=== PATIENT | male | born 1995 | race African-American/Black ===

== ENCOUNTER 2017-11-19 16:53 | Emergency (ER) | payer MEDICAID ==
[~2017-11-19] VITALS: Ht 182.9 cm; Wt 82.0 kg
[2017-11-19] MEDS ORDERED: CLON0.5T4 PO (16:58)
[2017-11-19] MEDS ORDERED: ESCI5TAB PO (16:58)
[2017-11-19] MEDS ORDERED: LAM25 PO (16:58)
[2017-11-20 01:55] LABS: CLARITY URINE CLEAR (CLEAR); COLOR URINE YELLOW (YELLOW); KETONES URINE TRACE (NEGATIVE); LEUKOCYTE ESTERASE URINE NEGATIVE (NEGATIVE); NITRITE URINE NEGATIVE (NEGATIVE); OCCULT BLOOD URINE NEGATIVE (NEGATIVE); PH URINE 7.5 (4.5-8.0); PROTEIN URINE NEGATIVE (NEGATIVE); SPECIFIC GRAVITY URINE 1.012 (1.005-1.030); UROBILINOGEN URINE 0.2 E.U./dL (0.2-1.0)
[2017-11-20 01:56] LABS: BASOPHILS % 0.3 % (0.0-2.0); EOSINOPHILS % 0.7 % (0.0-5.0); HEMOGLOBIN. 14.5 g/dL (14.0-18.0); MEAN CORPUSCULAR HEMOGLOBIN 26.8 pg (28.0-32.0); MEAN CORPUSCULAR VOLUME 81.6 fL (80.0-94.0); MEAN PLATELET VOLUME 7.5 fl (7.4-10.4); MONOCYTES % 9.5 % (2.0-8.0); NEUTROPHILS % 75.5 % (40.0-76.0); PLATELET 262 x1000/uL (130-400); RED BLOOD CELL COUNT 5.39 mill/uL (4.7-6.1); RED CELL DISTRIBUTION WIDTH 14.8 % (11.6-14.6)
[2017-11-20 02:01] LABS: CHLORIDE 107 mEq/L (98-107)
[2017-11-20 02:13] LABS: *AMPHETAMINES SCREEN URINE NEGATIVE (NEGATIVE); *BARBITURATES SCREEN URINE NEGATIVE (NEGATIVE); *BENZODIAZEPINES SCREEN URINE NEGATIVE (NEGATIVE); *COCAINE SCREEN URINE NEGATIVE (NEGATIVE); CANNABINOID URINE SCREEN NEGATIVE (NEGATIVE); METHADONE URINE SCREEN NEGATIVE (NEGATIVE); OPIATES URINE SCREEN NEGATIVE (NEGATIVE); PHENCYCLIDINE URINE SCREEN NEGATIVE (NEGATIVE)
[2017-11-20 02:14] LABS: CARBON DIOXIDE 29 mEq/L (21-32); ETHANOL BLOOD < 10 mg/dL
[2017-11-20 09:20] VITALS: BP 122/78
[2017-11-20] MEDS ORDERED: LORAZEPAM 2MG/ML CPJ IM ONE (10:00)
== END 2017-11-20 10:56 | disposition home or self-care (01) ==
LOC: ER 17:21
DX: F31.9 Bipolar disorder, unspecified (principal); R45.851 Suicidal ideations; F41.9 Anxiety disorder, unspecified; I10 Essential (primary) hypertension; J45.909 Unspecified asthma, uncomplicated; F17.200 Nicotine dependence, unspecified, uncomplicated
CPT/HCPCS: 36415; 80053; 80305; 81003; 85025; 96372; 99284; G0482; J2060

== ENCOUNTER 2023-03-17 20:36 | Emergency (ER) | payer MEDICAID ==
[~2023-03-17 20:36] MED LIST: CLON0.5T4 PO; ESCI5TAB PO; LAM25 PO
[2023-03-17] MEDS ORDERED: IBUPROFEN 400MG TABLET PO ONE (21:15)
[2023-03-17 21:51] VITALS: BP 150/84
[2023-03-17] MEDS ORDERED: IBUP-2028 MT (22:32)
== END 2023-03-17 23:00 | disposition home or self-care (01) ==
LOC: ER 20:36
DX: R51.9 Headache, unspecified (principal); R68.84 Jaw pain; Z98.890 Other specified postprocedural states
CPT/HCPCS: 99284